=== PATIENT | female | born 1950 | race Caucasian/White ===

== ENCOUNTER → 2017-08-03 | Outpatient (CLI) | payer OTHER | LOC: CIMAGING 14:42 | PROVIDERS: ATTEND Internal Medicine Hematology & Oncology | DX: E04.2 Nontoxic multinodular goiter (principal); C82.00 Follicular lymphoma grade I, unspecified site; C50.919 Malignant neoplasm of unspecified site of unspecified female breast | CPT/HCPCS: 76536-PO ==

== ENCOUNTER → 2018-03-10 | Outpatient (CLI) | payer OTHER | LOC: BRMIMAGING 10:49 | PROVIDERS: ATTEND Internal Medicine Hematology & Oncology | DX: M85.89 Other specified disorders of bone density and structure, multiple sites (principal); C82.00 Follicular lymphoma grade I, unspecified site; Z98.890 Other specified postprocedural states ==